=== PATIENT | female | born 1995 | race Caucasian/White ===

== ENCOUNTER 2016-09-27 00:32 | Emergency (ER) | payer MEDICAID, OTHER ==
[~2016-09-27] VITALS: Ht 167.6 cm; Wt 68.0 kg
[~2016-09-27 00:32] MED LIST: ALBU18HF2 INH; SUMA50TA PO
[2016-09-27 00:54] VITALS: BP 127/69
== END 2016-09-27 01:11 | disposition home or self-care (01) ==
LOC: ER 00:34
DX: S80.12XA Contusion of left lower leg, initial encounter (principal); X58.XXXA Exposure to other specified factors, initial encounter; Y93.01 Activity, walking, marching and hiking; Y92.89 Other specified places as the place of occurrence of the external cause; Y99.9 Unspecified external cause status
CPT/HCPCS: 99281; A4606; Z7610; Z7502

== ENCOUNTER 2016-10-17 22:22 | Emergency (ER) | payer MEDICAID ==
[~2016-10-17] VITALS: Ht 167.6 cm; Wt 69.4 kg
[2016-10-17 23:40] VITALS: BP 116/59
--- NOTE | 2016-10-17 23:40 | NUR ---
bb self; sore throat x 2 days, cough, congestion. pt aox3 rr even and unlabored. no sob noted. nad noted. no nvd at this time .pt gowned and placed on monitor waiting of md britton.
[2016-10-17] MEDS ORDERED: ALBUTEROL FS 2.5 MG/3 ML VIAL.NEB ONE (23:55)
[2016-10-18] MEDS ORDERED: ALBUTEROL FS 2.5 MG/3 ML VIAL.NEB CONTNEB ONE
[2016-10-18] MEDS ORDERED: DEXAMETHASONE SOD PHOSPHATE 4 MG/ML VIAL IV ONE
[2016-10-18] MEDS ORDERED: DEXAMETHASONE SOD PHOSPHATE 10 MG/ML VIAL ONE (00:06)
--- NOTE | 2016-10-18 00:24 | NUR ---
boyfriend at bedside
== END 2016-10-18 00:59 | disposition home or self-care (01) ==
LOC: ER 22:22
DX: J45.901 Unspecified asthma with (acute) exacerbation (principal); G43.909 Migraine, unspecified, not intractable, without status migrainosus; Z88.9 Allergy status to unspecified drugs, medicaments and biological substances
CPT/HCPCS: 94640 ×2; 99285; J1100

== ENCOUNTER 2017-03-28 19:23 | Emergency (ER) | payer MEDICAID ==
[~2017-03-28] VITALS: Ht 167.6 cm; Wt 69.9 kg
[2017-03-28 19:45] VITALS: BP 113/84
[2017-03-28 19:48] LABS: APPEARANCE,URINE Clear (CLEAR); BILIRUBIN,URINE Negative (NEGATIVE); BLOOD, URINE Negative Ery/uL (NEGATIVE); COLOR,URINE Yellow (YELLOW); KETONES,URINE Negative (NEGATIVE); LEUKOCYTE ESTERASE ,URINE Trace (NEGATIVE); NITRITE, URINE Negative (NEGATIVE); PH,URINE 6.5 (5.0-8.0); PROTEIN,URINE Negative (NEGATIVE); UGLUCOSE Negative (NEGATIVE); UROBILINOGEN,URINE 0.2 EU/dL (0.2)
[2017-03-28 20:11] LABS: BACTERIA,URINE Few /HPF (None Seen); RBC,URINE 0-2 /HPF (0-2); SQUAMOUS EPITHELIAL CELL,UR Few /HPF (None Seen); URINE AMORPHOUS URATE Few /HPF (None Seen); WBC,URINE 2-4/HPF /HPF (0-3)
== END 2017-03-28 20:40 | disposition home or self-care (01) ==
LOC: ER 19:23
DX: N39.0 Urinary tract infection, site not specified (principal)
CPT/HCPCS: 81001; 84703; 87491; 87591; 99284; A4606; Z7610; 81000-TC

== ENCOUNTER 2018-01-29 18:30 | Emergency (ER) | payer MEDICAID, OTHER ==
[~2018-01-29] VITALS: Ht 170.2 cm; Wt 71.7 kg
[2018-01-29 18:30] VITALS: BP 116/74
[2018-01-29] MEDS ORDERED: IBUPROFEN 600 MG TABLET PO ONE ×2 (19:00→19:04)
== END 2018-01-29 20:36 | disposition home or self-care (01) ==
LOC: ER 18:35
DX: M25.522 Pain in left elbow (principal)
CPT/HCPCS: 73080; 99284; A4606; Z7610

== ENCOUNTER 2020-04-02 21:30 | Emergency (ER) | payer MEDICAID ==
[~2020-04-02] VITALS: Ht 170.2 cm; Wt 86.2 kg
[2020-04-02] MEDS ORDERED: diphenhydrAMINE HCL 50 MG/ML VIAL ONE (21:54)
[2020-04-02] MEDS ORDERED: METOCLOPRAMIDE HCL 10 MG/2 ML VIAL ONE (21:54)
[2020-04-02] MEDS ORDERED: METOCLOPRAMIDE HCL 10 MG/2 ML VIAL IV ONE (22:00)
[2020-04-02] MEDS ORDERED: IV NS 0.9% 1,000 ML BAG IV ONE (22:00)
[2020-04-02] MEDS ORDERED: diphenhydrAMINE HCL 50 MG/ML VIAL IV ONE (22:00)
[2020-04-02 22:10] LABS: BASOPHILS # (AUTO) 0.1 /CMM (0.0-0.2); BASOPHILS % (AUTO) 0.8 % (0.0-2.0); EOSINOPHILS % (AUTO) 2.5 % (0.0-6.0); HEMATOCRIT 43 % (33-45); HEMOGLOBIN 14.2 g/dL (11.5-14.8); LYMPHOCYTES % (AUTO) 21.5 % (20.0-44.0); MEAN CORPUSCULAR HGB CONC 33 g/dl (31.0-36.0); MEAN CORPUSCULAR VOLUME 85 fL (82-100); MONOCYTES # (AUTO) 0.9 /CMM (0.1-1.30); MONOCYTES % (AUTO) 9.9 % (2.0-12.0); NEUTROPHILS # (AUTO) 6.2 /CMM (1.8-8.9); NEUTROPHILS % (AUTO) 65.3 % (43.0-81.0); PLATELET COUNT (AUTO) 240 /CMM (150-450); RED BLOOD CELL COUNT(AUTO) 5.02 MIL/uL (4.0-5.2); WHITE BLOOD COUNT (AUTO) 9.5 K/uL (4.3-11.0)
--- NOTE | 2020-04-02 22:19 | NUR ---
BIBS WITH MOTHER FROM HOME TO ER BED 7. AAOX4. NOT IN RESP DISTRESS. AMBULATORY. CAME IN FOR HEADACHE THAT STARTED EARLIER THIS EVENING @ 1900. PT RATES HER PAIN 7/10 ON HER R SIDE OF THE HEAD WITH C/O ASSOCIATED BLURRY VISION WHICH IS RESOLVED UPON ASSESSMENT. PT REPORTS THAT SHE TOOK EXEDRINE W/O ANY RELIEF. NO NEURO DEFICIT NOTED. PA AT WAS AT THE BEDSIDE FOR EVAL. ORDERS RECEIVED NOTED AND CARRIED OUT. IV LINE ESTABLISHED ON THE L AC 20G. BLOOD DRAWN AND GIVEN TO COLLEGE PRESIDENT AT BEDSIDE.
[2020-04-02 22:20] LABS: CALCIUM, SERUM 9.1 mg/dL (8.5-10.1); CREATININE 0.8 mg/dL (0.6-1.3); POTASSIUM 3.4 mmol/L (3.5-5.1)
[2020-04-02] MEDS ORDERED: KETOROLAC TROMETHAMINE 15 MG/ML VIAL ONE (23:36)
--- NOTE | 2020-04-02 23:58 | NUR ---
Patient discharged to home in stable condition. Written and verbal after care instructions given. Patient verbalizes understanding of instruction.IV removed. Catheter intact and site benign. Pressure and 4x4 applied to site. No bleeding noted.IV removed. Catheter intact and site benign. Pressure and 4x4 applied to site. No bleeding noted. Pt ambulatory with a steady gait
[2020-04-02 23:59] VITALS: BP 79/113
[2020-04-03] MEDS ORDERED: KETOROLAC TROMETHAMINE INJ 30 MG/ML VIAL IV ONE
== END 2020-04-03 00:01 | disposition home or self-care (01) ==
LOC: ER 21:31
DX: G43.109 Migraine with aura, not intractable, without status migrainosus (principal); J45.909 Unspecified asthma, uncomplicated; Z79.899 Other long term (current) drug therapy
CPT/HCPCS: 36415; 70450; 80048; 84702; 84703; 85025; 96361; 96374; 96375; 99284; A4216; J1200; J1885; J2765; J7030

== ENCOUNTER 2020-08-23 09:56 | Emergency (ER) | payer MEDICAID ==
[~2020-08-23] VITALS: Ht 165.1 cm; Wt 68.0 kg
[2020-08-23 10:22] VITALS: BP 118/76
--- NOTE | 2020-08-23 11:03 | NUR ---
Patient discharged to home in stable condition. Written and verbal after care instructions given. Patient verbalizes understanding of instruction.
== END 2020-08-23 11:04 | disposition home or self-care (01) ==
LOC: ER 09:59
DX: U07.1 COVID-19 (principal); J02.9 Acute pharyngitis, unspecified; J45.909 Unspecified asthma, uncomplicated; Z79.899 Other long term (current) drug therapy

== ENCOUNTER 2021-02-02 14:38 | Emergency (ER) | payer MEDICAID ==
[~2021-02-02] VITALS: Ht 170.2 cm; Wt 86.2 kg
--- NOTE | 2021-02-02 14:58 | NUR ---
Patient came in to the er c/o chest pain, been coughing since tuesday 97% on room air. On room air, breathing evenly and unlabored. Connected to the monitor and pulse ox. kept comfortable, will continue to monitor accordingly.
[2021-02-02 15:16] LABS: BASOPHILS # (AUTO) 0.1 K/uL (0.0-0.2); EOSINOPHILS % (AUTO) 5.3 % (0.0-6.0); HEMATOCRIT 40 % (33-45); HEMOGLOBIN 13.4 g/dL (11.5-14.8); LYMPHOCYTES # (AUTO) 2.5 K/uL (0.8-4.8); LYMPHOCYTES % (AUTO) 31.2 % (20.0-44.0); MEAN CORPUSCULAR HGB CONC 33 g/dl (31.0-36.0); MEAN CORPUSCULAR VOLUME 85 fL (82-100); MONOCYTES # (AUTO) 0.7 K/uL (0.1-1.30); NEUTROPHILS # (AUTO) 4.2 K/uL (1.8-8.9); NEUTROPHILS % (AUTO) 53.5 % (43.0-81.0); PLATELET COUNT (AUTO) 330 K/uL (150-450); RED BLOOD CELL COUNT(AUTO) 4.76 MIL/uL (4.0-5.2); WHITE BLOOD COUNT (AUTO) 7.9 K/uL (4.3-11.0)
[2021-02-02 15:23] LABS: CALCIUM, SERUM 8.6 mg/dL (8.5-10.1); CARBON DIOXIDE 29 mmol/L (21-32); CHLORIDE 104 mmol/L (98-107); CREATININE 0.7 mg/dL (0.6-1.3); GLUCOSE 97 mg/dL (74-106); POTASSIUM 4.7 mmol/L (3.5-5.1); SODIUM SERUM 138 mmol/L (136-145); UREA NITROGEN, BLOOD 11 mg/dL (7-18)
[2021-02-02] MEDS ORDERED: ALBU18HF2 INH (16:51)
[2021-02-02] MEDS ORDERED: BENZ-13 PO (16:52)
[2021-02-02] MEDS ORDERED: PRED50TA PO (16:52)
[2021-02-02 17:00] VITALS: BP 126/71
--- NOTE | 2021-02-02 17:00 | NUR ---
Patient discharged to home in stable condition. Written and verbal after care instructions given. Patient verbalizes understanding of instruction.
== END 2021-02-02 17:00 | disposition home or self-care (01) ==
LOC: ER 14:41
DX: J06.9 Acute upper respiratory infection, unspecified (principal); J45.909 Unspecified asthma, uncomplicated; R05 Cough; Z20.822 Contact with and (suspected) exposure to COVID-19
CPT/HCPCS: 36415; 71045; 80048; 84484; 85025; 87426; 93005; 99285; C9803

== ENCOUNTER 2021-02-16 10:11 | Emergency (ER) | payer MEDICAID ==
[~2021-02-16] VITALS: Ht 170.2 cm; Wt 86.2 kg
[~2021-02-16 10:11] MED LIST changes: +BENZ-13 PO; +PRED50TA PO
[2021-02-16 10:19] VITALS: BP 119/81
--- NOTE | 2021-02-16 10:26 | NUR ---
SEEN AND EXAMINED BY .
[2021-02-16] MEDS ORDERED: GENT5DRO4 EACHEYE (10:31)
--- NOTE | 2021-02-16 10:38 | NUR ---
Patient discharged to home in stable condition. Written and verbal after care instructions given. Patient verbalizes understanding of instruction.
== END 2021-02-16 10:39 | disposition home or self-care (01) ==
LOC: ER 10:11
DX: H10.9 Unspecified conjunctivitis (principal); J45.909 Unspecified asthma, uncomplicated; Z79.899 Other long term (current) drug therapy

== ENCOUNTER 2021-04-09 16:23 | Emergency (ER) | payer MEDICAID ==
[~2021-04-09] VITALS: Ht 167.6 cm; Wt 81.6 kg
[~2021-04-09 16:23] MED LIST changes: +GENT5DRO4 EACHEYE
--- NOTE | 2021-04-09 16:39 | NUR ---
TO ER BED 2, C/O OF HEADACHE WORST TODAY, HX OF MIGRAINE, A&OX4, AWAITING MD YUAN
[2021-04-09] MEDS ORDERED: diphenhydrAMINE HCL 50 MG/ML VIAL ONE (17:19)
[2021-04-09] MEDS ORDERED: KETOROLAC TROMETHAMINE INJ 30 MG/ML VIAL ONE (17:19)
[2021-04-09] MEDS ORDERED: DEXAMETHASONE SOD PHOSPHATE 10 MG/ML VIAL ONE (17:19)
[2021-04-09] MEDS ORDERED: METOCLOPRAMIDE HCL 10 MG/2 ML VIAL ONE (17:20)
[2021-04-09] MEDS: diphenhydrAMINE HCL 50 MG/ML VIAL IV ONE (17:27)
[2021-04-09] MEDS: METOCLOPRAMIDE HCL 10 MG/2 ML VIAL IV ONE (17:28)
[2021-04-09] MEDS: DEXAMETHASONE SOD PHOSPHATE 10 MG/ML VIAL IV ONE (17:28)
[2021-04-09] MEDS: KETOROLAC TROMETHAMINE INJ 30 MG/ML VIAL IV ONE (17:28)
--- NOTE | 2021-04-09 18:38 | NUR ---
IV removed. Catheter intact and site benign. Pressure and 4x4 applied to site. No bleeding noted.Patient discharged to home in stable condition. Written and verbal after care instructions given. Patient verbalizes understanding of instruction.
[2021-04-09 18:39] VITALS: BP 124/83
== END 2021-04-09 18:39 | disposition home or self-care (01) ==
LOC: ER 16:24
DX: G43.909 Migraine, unspecified, not intractable, without status migrainosus (principal); J45.909 Unspecified asthma, uncomplicated; Z79.899 Other long term (current) drug therapy
CPT/HCPCS: 96374; 96375; 99284; J1100; J1200; J1885; J2765; J7030